=== PATIENT | female | born 1980 | race Two or more races ===

== ENCOUNTER 2017-05-11 13:55 | Emergency (ER) | payer MEDICAID ==
[~2017-05-11] VITALS: Ht 162.6 cm; Wt 90.7 kg
[~2017-05-11 13:55] MED LIST: ALPRAZOLAM0.25 MG ORAL; CIPRO500 MG PO; FIORICET1 EA ORAL; IMITREX100 M1 ORAL; IMITREX50 MG PO; MACROBID100 MG ORAL; NITROFURANTOIN100 M2 ORAL; PROPRANOLOL HCL20 MG PO; TOPIRAMATE25 MG ORAL; ZOFRAN ODT4 MG ORAL
[2017-05-11 14:25] VITALS: BP 107/72
[2017-05-11] MEDS ORDERED: Methocarbamol 750mg tab ORAL ONE (14:30)
[2017-05-11] MEDS ORDERED: Ketorolac 30mg Inj IM ONE (14:30)
[2017-05-11] MEDS ORDERED: IBUPROFEN600 MG ORAL (15:15)
[2017-05-11] MEDS ORDERED: ROBAXIN-750750 MG PO (15:15)
[2017-05-11 15:18] VITALS: BP 107/72
--- NOTE | 2017-05-11 17:51 | Emergency Room Report ---
History of Present Illness General Chief Complaint: Pain Source: Patient Present Illness HPI The patient is a 36-year-old female presenting for right shoulder pain which began one week prior for no known reason. She denies any injury to the area. Pain is an 8/10 dull ache and does not radiate. Worse with arm movement. She has tried [place] balm which does not help. She states pain decreases when arm is at rest. She denies any numbness or tingling. She denies other symptoms including headache, nausea, vomiting, fever, chills, chest pain, shortness of breath Allergies: Coded Allergies: FISH CONTAINING PRODUCTS (Unverified Allergy, Unknown, 04/24/15) Patient History Past Medical History: see triage record Pertinent Family History: none Last Menstrual Period: 04/19/17 Now: No Reviewed Nursing Documentation: PMH: Agreed, PSxH: Agreed Nursing Documentation-PMH Hx Cardiac Problems: No - migrane Hx Hypertension: No Hx Pacemaker: No Hx Asthma: No Hx COPD: No Hx Diabetes: No - "Graves disease dx'd 10/28/15, went on methimazole for six months - Hx Gastrointestinal Problems: No Hx Dialysis: No Hx Neurological Problems: Yes - migraine Hx Cerebrovascular Accident: No Hx Seizures: No Review of Systems All Other Systems: negative except mentioned in HPI Physical Exam Vital Signs Date Time Temp Pulse Resp B/P Pulse Ox O2 Delivery O2 Flow Rate FiO2 05/11/17 14:02 98.2 75 16 107/72 95 Room Air Sp02 EP Interpretation: reviewed, normal Head: normocephalic, atraumatic Eyes: bilateral eye PERRL, bilateral eye normal inspection ENT: hearing grossly normal, normal pharynx, no angioedema, normal voice Respiratory: chest non-tender, lungs clear, normal breath sounds, speaking full sentences Cardiovascular #1: regular rate, rhythm, no edema Musculoskeletal: decreased range of motion, tender - TTP over the R trapezius and anterior deltoid Neurologic: alert, oriented x3, responsive, motor strength/tone normal, sensory intact, speech normal Psychiatric: judgement/insight normal, memory normal, mood/affect normal, no suicidal/homicidal ideation Skin: normal color, no rash, warm/dry, well hydrated Lymphatic: no adenopathy Procedures Splinting Splinting : Consent: Verbal Location: R arm Pre-Made Type: sling Pre-Proc Neuro Vasc Exam: normal Post-Proc Neuro Vasc Exam: normal Patient Tolerated: Well Complications: None Medical Decision Making PA Attestation Dr. Mendez is my supervising physician. Patient management was discussed with my supervising physician Diagnostic Impression: Primary Impression: Muscle strain ER Course The patient is a 36-year-old female presenting with right shoulder pain Ddx considered include but not limited to sprain/strain, fracture, contusion Physical exam: No apparent distress There is tenderness to palpation over the right trapezius and anterior deltoid. Limited active range of motion due to pain. No obvious deformity. Skin is warm and dry. Radial pulse 2+ The patient is given Toradol and Robaxin and states pain has significantly decreased. Active range of motion has increased. Sling is placed over the right arm She'll be discharged home with a prescription for Motrin and Robaxin. She will follow up with primary doctor. ER precautions given Last Vital Signs Date Time Temp Pulse Resp B/P Pulse Ox O2 Delivery O2 Flow Rate FiO2 05/11/17 15:18 98.2 81 16 107/72 95 Room Air Status: improved Disposition: HOME, SELF-CARE Condition: Improved Scripts Methocarbamol* (ROBAXIN-750*) 750 Mg Tablet 750 MG PO TID, #21 TAB 0 Refills Prov: SHIRA WALLIS P.A. 05/11/17 Ibuprofen* (MOTRIN*) 600 Mg Tablet 600 MG ORAL Q8H Y for For Pain, #30 TAB 0 Refills Prov: SHIRA WALLIS P.A. 05/11/17 Patient Instructions: Muscle Strain Additional Instructions: I discussed my findings with the patient. All questions and concerns have been answered. Treatment and medication compliance have been addressed. I advised the patient that they need to follow up with PMD in 3-5 days. Return to ED if pain remains or worsens, numbness or tingling occurs, new rash is noticed, fever is noticed, or if needed for any reason. Patient verbalized understanding of discharge instructions. SHIRA WALLIS May 11, 2017 17:51
== END 2017-05-11 15:18 | disposition home or self-care (01) ==
LOC: EMR 15:07
DX: T14.8 Other injury of unspecified body region (principal); X58.XXXA Exposure to other specified factors, initial encounter; Y93.9 Activity, unspecified; Y92.9 Unspecified place or not applicable; Z91.013 Allergy to seafood
CPT/HCPCS: 96372; 99284; J1885

== ENCOUNTER 2017-10-14 11:55 | Emergency (ER) | payer MEDICAID ==
[~2017-10-14] VITALS: Ht 162.6 cm; Wt 111.1 kg
[~2017-10-14 11:55] MED LIST changes: +IBUPROFEN600 MG ORAL; +ROBAXIN-750750 MG PO
[2017-10-14] MEDS ORDERED: EXCEDRIN MIGRA1 EAC1 PO (12:23)
--- NOTE | 2017-10-14 12:23 | Emergency Room Report ---
History of Present Illness General Chief Complaint: Headache Source: Patient Present Illness HPI 37 yo female presents to ER complaining of right-sided FERNANDEZ. Patient also complaining of pain "behind the eyes". Patient complains of nausea and vomiting yesterday until 1900; states she has been able to tolerate oral liquid since that time. Patient reports a history of migraine FERNANDEZ with similar symptoms being treated with Imitrex; states she took her medication with no relief of symptoms. Patient denies fever, SOB, chest pain, vision changes. Allergies: Coded Allergies: FISH CONTAINING PRODUCTS (Unverified Allergy, Unknown, 04/24/15) Patient History Past Medical History: see triage record Past Surgical History: none Social History: Denies: smoking, alcohol use, drug use Last Menstrual Period: 09/02/2017 Immunizations: UTD Reviewed Nursing Documentation: PMH: Agreed, PSxH: Agreed Nursing Documentation-PMH Past Medical History: No History, Except For Hx Cardiac Problems: No Hx Hypertension: No Hx Pacemaker: No Hx Asthma: No Hx COPD: No Hx Diabetes: No - Graves disease Hx Cancer: No Hx Gastrointestinal Problems: No Hx Dialysis: No History Of Psychiatric Problem: No Hx Neurological Problems: Yes - migraine Hx Cerebrovascular Accident: No Hx Seizures: No Review of Systems All Other Systems: negative except mentioned in HPI Physical Exam Vital Signs Date Time Temp Pulse Resp B/P (MAP) Pulse Ox O2 Delivery O2 Flow Rate FiO2 10/14/17 12:02 98.4 81 14 106/72 96 Room Air Sp02 EP Interpretation: reviewed, normal General Appearance: alert, GCS 15, non-toxic, mild distress Head: normocephalic, atraumatic Eyes: bilateral eye normal inspection, bilateral eye PERRL, bilateral eye EOMI ENT: hearing grossly normal, normal pharynx, normal voice, TMs + canals normal , uvula midline, moist mucus membranes Neck: full range of motion, supple/symm/no masses Respiratory: chest non-tender, lungs clear, normal breath sounds, no respiratory distress, no accessory muscle use, speaking full sentences Cardiovascular #1: regular rate, rhythm, no gallop, no murmur, no rub Cardiovascular #2: 2+ carotid (R), 2+ carotid (L) Musculoskeletal: back normal, gait/station normal, normal range of motion, non- tender, calf tenderness Neurologic: alert, oriented x3, responsive, clinical quality analyst III-XII nml as tested, motor strength/tone normal, sensory intact, normal gait, speech normal Psychiatric: mood/affect normal Skin: normal color, no rash, warm/dry, well hydrated Lymphatic: no adenopathy Medical Decision Making PA Attestation Dr. Salinas is my supervising Physician whom patient management has been discussed with. Diagnostic Impression: Primary Impression: migraine headache ER Course Pt. presents to the ED c/o migraine. Ddx considered but are not limited to migraine FERNANDEZ, tension FERNANDEZ, cluster FERNANDEZ, SAH, TIA. Vital signs: are WNL, pt. is afebrile. ORDERS: none required at this time, the diagnosis is clinical ED INTERVENTIONS: -Excedrin Migraine -Reglan DISCHARGE: -Rx provided for Excedrin migraine -Rx provided for Claritin-D At this time pt is stable for d/c to home. Will provide with patient care instructions and any necessary prescriptions. Patient to take medication as instructed. Patient instructed to continue to current migraine medications at home until further follow-up with PCP. Care plan and follow-up instructions provided. Patient questions asked and answered. Patient instructed to follow-up with primary care provider in the next 3 days and discuss further referral with PCP. ER precautions given. Patient instructed to return to ER immediately for any new or worsening of symptoms including but not limited to fever, neck stiffness , vision changes, and neurological symptoms. Last Vital Signs Date Time Temp Pulse Resp B/P (MAP) Pulse Ox O2 Delivery O2 Flow Rate FiO2 10/14/17 12:02 98.4 81 14 106/72 96 Room Air Status: improved Reevaluation Impression Patient states she is feeling better. Requesting to be discharged, states she is beginning to "feel hungry again". Disposition: HOME, SELF-CARE Condition: Stable Scripts Loratadine/Pseudoephedrine (CLARITIN-D 12 HOUR TABLET) 1 Each Tab.er.12h 1 TAB ORAL EVERY 12 HOURS for 7 Days, #14 TAB Prov: Rosas Valdovinos.A. 10/14/17 Aspirin/Acetaminophen/Caffeine (EXCEDRIN MIGRAINE CAPLET) 1 Each Tablet 1 EACH PO 2XW for 7 Days, #14 TAB Prov: Rosas Valdovinos.A. 10/14/17 Patient Instructions: Migraine Headache Additional Instructions: Patient questions asked and answered. Patient instructed to follow-up with primary care provider in the next 3 days and discuss further referral with PCP. ER precautions given. Patient instructed to return to ER immediately for any new or worsening of symptoms including but not limited to fever, neck stiffness , vision changes, and neurological symptoms. Rosas Valdovinos Oct 14, 2017 12:23
[2017-10-14] MEDS ORDERED: Metoclopramide 10mg/10ml Liq ORAL ONE (12:30)
[2017-10-14] MEDS ORDERED: Excedrin Migraine tab ORAL ONE (12:30)
[2017-10-14] MEDS ORDERED: CLARITIN-D 121 EAC1 ORAL (13:30)
[2017-10-14 13:40] VITALS: BP 131/79
== END 2017-10-14 13:43 | disposition home or self-care (01) ==
LOC: EMR 13:00
DX: G43.909 Migraine, unspecified, not intractable, without status migrainosus (principal); R11.2 Nausea with vomiting, unspecified
CPT/HCPCS: 99283

== ENCOUNTER 2017-12-28 07:00 | Emergency (ER) | payer MEDICAID ==
[~2017-12-28] VITALS: Ht 154.9 cm; Wt 90.7 kg
[~2017-12-28 07:00] MED LIST changes: +CLARITIN-D 121 EAC1 ORAL; +EXCEDRIN MIGRA1 EAC1 PO
[2017-12-28] MEDS: Ketorolac 30mg Inj IM ONE (07:24)
[2017-12-28] MEDS: Metoclopramide 10mg/2ml Inj IM ONE (07:25)
[2017-12-28] MEDS: DiphenhydrAMINE 50mg/ml Inj IM ONE (07:25)
[2017-12-28] MEDS ORDERED: ZOFRAN ODT4 MG ORAL (07:57)
[2017-12-28] MEDS ORDERED: IMITREX50 MG ORAL (07:57)
[2017-12-28 07:59] VITALS: BP 138/83
[2017-12-28 08:00] VITALS: BP 138/83
--- NOTE | 2017-12-28 08:19 | Emergency Room Report ---
History of Present Illness General Chief Complaint: Headache Source: Patient Present Illness HPI 37-year-old female presents ED complaining of headache. Started this morning. History of migraines. Left-sided, throbbing, 10 out of 10, nonradiating. Notes nausea, denies vomiting. Denies photophobia. Denies neck stiffness. Denies fevers or chills. States that she ran out of hers Imitrex. No other aggravating relieving factors. Denies any other associated symptoms Allergies: Coded Allergies: FISH CONTAINING PRODUCTS (Unverified Allergy, Unknown, 04/24/15) Patient History Past Medical History: migraines Past Surgical History: none Pertinent Family History: none Social History: Denies: smoking, alcohol use, drug use Last Menstrual Period: Irregular Now: No - Grave's Disease Immunizations: UTD Reviewed Nursing Documentation: PMH: Agreed; PSxH: Agreed Nursing Documentation-PMH Hx Cardiac Problems: No Hx Hypertension: No Hx Pacemaker: No Hx Asthma: No Hx COPD: No Hx Cancer: No Hx Gastrointestinal Problems: No Hx Dialysis: No Hx Cerebrovascular Accident: No Hx Seizures: No Review of Systems All Other Systems: negative except mentioned in HPI Physical Exam Vital Signs Date Time Temp Pulse Resp B/P (MAP) Pulse Ox O2 Delivery O2 Flow Rate FiO2 12/28/17 07:04 97.8 81 19 140/88 94 Room Air 97.9 Sp02 EP Interpretation: reviewed, normal General Appearance: no apparent distress, alert, GCS 15, non-toxic Head: normocephalic, atraumatic Eyes: bilateral eye normal inspection, bilateral eye PERRL ENT: hearing grossly normal, normal pharynx, no angioedema, normal voice Neck: full range of motion, no meningismus, supple/symm/no masses Respiratory: chest non-tender, lungs clear, normal breath sounds, speaking full sentences Cardiovascular #1: regular rate, rhythm, no edema Cardiovascular #2: 2+ carotid (R), 2+ carotid (L), 2+ radial (R), 2+ radial (L) , 2+ dorsalis pedis (R), 2+ dorsalis pedis (L) Gastrointestinal: normal bowel sounds, non tender, soft, non-distended, no guarding, no rebound Rectal: deferred Genitourinary: normal inspection, no CVA tenderness Musculoskeletal: back normal, gait/station normal, normal range of motion, non- tender Neurologic: alert, oriented x3, responsive, motor strength/tone normal, sensory intact, speech normal Psychiatric: judgement/insight normal, memory normal, mood/affect normal, no suicidal/homicidal ideation Reflexes: 3+ bicep (R), 3+ bicep (L), 3+ tricep (R), 3+ tricep (L), 3+ knee (R) , 3+ knee (L) Skin: normal color, no rash, warm/dry, well hydrated Lymphatic: no adenopathy Medical Decision Making Diagnostic Impression: Primary Impression: migraine headache ER Course Hospital Course 37-year-old female presents to ED complaining of headache. h/o migraine Differential diagnoses include: tension headache, migraine, dehydration, intracranial bleed Clinical course Patient placed on stretcher. After initial history and physical I ordered Reglan, Toradol and Benadryl. Upon reassessment patient states pain has improved. Patient feels better wishes to go home. Given the lack of fever, nuchal rigidity or neurological findings my suspicion for intracranial pathology is low patient be safely discharged to home. i. I feel this is a highly complex case requiring extensive working including EKG/Rhythm strip, Xray/CT/US, Blood/urine lab work, repeat exams while in ED, and administration of strong opiates/narcotics for pain control, admission to hospital or close patient follow up. Diagnosis - migraine headache stable and discharged to home with Rx Imitrex, Zofran. f/up with PMD. return to ED if symptoms recur/worsen. Last Vital Signs Date Time Temp Pulse Resp B/P (MAP) Pulse Ox O2 Delivery O2 Flow Rate FiO2 12/28/17 08:00 97.7 83 17 138/83 97 Room Air 97.9 Status: improved Disposition: HOME, SELF-CARE Condition: Stable Scripts Ondansetron Odt* (ZOFRAN ODT*) 4 Mg Tab.rapdis 4 MG ORAL Q6H PRN for Nausea & Vomiting, #30 TAB 0 Refills Prov: Juan Antonio Jiang MD 12/28/17 Sumatriptan Succinate* (IMITREX*) 50 Mg Tablet 50 MG ORAL DAILY PRN MIGRAINE, #30 TAB Prov: Juan Antonio Jiang MD 12/28/17 Referrals: [facility],REFERRING (PCP) Patient Instructions: Migraine Headache Juan Antonio Jiang MD Dec 28, 2017 08:19
== END 2017-12-28 08:00 | disposition home or self-care (01) ==
LOC: EMR 07:40
DX: G43.909 Migraine, unspecified, not intractable, without status migrainosus (principal)
CPT/HCPCS: 96372; 99284; J1200; J1885; J2765

== ENCOUNTER 2019-01-27 20:29 | Emergency (ER) | payer MEDICAID ==
[~2019-01-27] VITALS: Ht 162.6 cm; Wt 113.4 kg
[~2019-01-27 20:29] MED LIST changes: +IMITREX50 MG ORAL
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
[2019-01-27 20:50] VITALS: BP 128/80
--- NOTE | 2019-01-27 21:08 | Diagnostic Imaging Report ---
EXAM: XR Right Wrist Complete, 3 Views CLINICAL HISTORY: TRAUMA TECHNIQUE: Frontal, lateral and oblique views of the right wrist. COMPARISON: No relevant prior studies available. FINDINGS: Bones/joints: Unremarkable. No acute fracture. No dislocation. Soft tissues: Unremarkable. No radiopaque foreign body. IMPRESSION: No definite plain film evidence for acute fracture or dislocation. If there is continued clinical concern for fracture, consider CT or MRI for further evaluation.
[2019-01-27] MEDS ORDERED: IBUPROFEN600 MG ORAL (21:34)
--- NOTE | 2019-01-27 21:37 | NUR ---
ED Nurse Note: pt cleared to be d/c per ERMD, pt discharge and aftercare instruction provided w/ prescription sent electronically, pt advised to follow up with pcp/orthospecialist or return to ed if changes in condition, pt verbalized understanding and agrees with plan, education done via discussion and handout, vss, wrist brace applied, pt left w/ all belongings.
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
== END 2019-01-27 21:30 | disposition home or self-care (01) ==
LOC: EMR 21:19
DX: S62.001A Unspecified fracture of navicular [scaphoid] bone of right wrist, initial encounter for closed fracture (principal); V19.88XA Pedal cyclist (driver) (passenger) injured in other specified transport accidents, initial encounter; Y92.9 Unspecified place or not applicable; Z91.013 Allergy to seafood
CPT/HCPCS: 99283

== ENCOUNTER 2019-09-16 16:39 | Emergency (ER) | payer MEDICAID ==
[~2019-09-16] VITALS: Ht 162.6 cm; Wt 113.4 kg
[2019-09-16 17:10] VITALS: BP 105/68
--- NOTE | 2019-09-16 17:20 | NUR ---
ED Nurse Note: PT CAME IN DUE TO LOWER BACK PAIN THAT RADIATES TO HER PUBIC AREA X 1 WEEK. DENIES DYSURIA. NO FEVER OR CHILLS. AAO X4 AND AMBULATORY.
[2019-09-16 17:49] LABS: APPEARANCE,URINE CLEAR; BILIRUBIN, URINE NEGATIVE (NEGATIVE); GLUCOSE, URINE (UA) NEGATIVE (NEGATIVE); KETONES,URINE NEGATIVE (NEGATIVE); LEUKOCYTE ESTERASE ,URINE NEGATIVE (NEGATIVE); NITRITE,URINE NEGATIVE (NEGATIVE); PH,URINE 6 (4.5-8.0); PROTEIN,URINE NEGATIVE (NEGATIVE); UROBILINOGEN,URINE NORMAL MG/DL (0.0-1.0)
[2019-09-16 17:52] LABS: COLOR,URINE YELLOW
--- NOTE | 2019-09-16 18:06 | Emergency Room Report ---
History of Present Illness General Chief Complaint: Back Pain-No Injury Source: Patient Present Illness HPI * 39 YO Female presents to the ED c/o progressive right flank pain intermittent and severe in nature. Patient denies hematuria, urinary frequency, urgency or dysuria. Patient denies fevers or chills she denies appreciable trauma or fall or strenuous activity/lifting of heavy objects. Patient reports pain is exacerbated upon the slightest movement of the torso. She states the pain radiates but has not migrated. She denies constipation, diarrhea or nausea/vomiting Denies CP, Palpitations, LOC, AMS, dizziness, Changes in Vision, Sensation, paresthesias, or a sudden severe headache. Allergies: Coded Allergies: FISH CONTAINING PRODUCTS (Unverified Allergy, Unknown, 04/24/15) Patient History Past Medical History: see triage record, other - graves disease Past Surgical History: none Pertinent Family History: none Last Menstrual Period: on period Now: No Reviewed Nursing Documentation: PMH: Agreed; PSxH: Agreed Nursing Documentation-PMH Past Medical History: No History, Except For Hx Cardiac Problems: No - Grave's disease Hx Hypertension: No Hx Pacemaker: No Hx Asthma: No Hx COPD: No Hx Diabetes: No Hx Cancer: No Hx Gastrointestinal Problems: No Hx Dialysis: No History Of Psychiatric Problem: No Hx Neurological Problems: No Hx Cerebrovascular Accident: No Hx Seizures: No Review of Systems All Other Systems: negative except mentioned in HPI Physical Exam Vital Signs Date Time Temp Pulse Resp B/P (MAP) Pulse Ox O2 Delivery O2 Flow Rate FiO2 09/16/19 17:10 98.1 94 16 105/68 96 Room Air Sp02 EP Interpretation: reviewed, normal General Appearance: no apparent distress, alert, GCS 15, non-toxic Head: normocephalic, atraumatic Eyes: bilateral eye normal inspection, bilateral eye PERRL ENT: hearing grossly normal, normal voice Neck: full range of motion Respiratory: chest non-tender, lungs clear, normal breath sounds, speaking full sentences Cardiovascular #1: regular rate, rhythm Gastrointestinal: normal bowel sounds, non tender - NO appreciable RUQ or RLQ abdominal TTP on exam. , soft Rectal: deferred Genitourinary: normal inspection, CVA tenderness (R) Musculoskeletal: normal range of motion, gait/station normal, tender - RIght flank area, superficial TTP, pain with movements. Neurologic: alert, motor strength/tone normal, oriented x3, sensory intact, responsive, speech normal Psychiatric: judgement/insight normal Skin: no rash Lymphatic: no adenopathy Medical Decision Making PA Attestation Dr. Mendez is my supervising Physician whom patient management has been discussed with. Diagnostic Impression: Primary Impression: Back pain Qualified Codes: M54.5 - Low back pain Additional Impression: Acute flank pain ER Course Pt. presents to the ED c/o progressive right flank pain intermittent and severe in nature. Ddx considered but are not limited to Diverticulitis, acute appy, diarrhea,UC, PUD, GE, pancreatitis, gallstone, kidney stone, pyelonephritis, UTI, obstruction. Vital signs: are WNL, pt. is afebrile H&PE are most consistent with [ ] ORDERS: -CBC, CMP, lipase, - UA -Urine Hcg: Negative - Renal US: ED INTERVENTIONS: -- DISCHARGE: At this time pt. is stable for d/c to home. Will provide printed patient care instructions, and any necessary prescriptions. Care plan and follow up instructions have been discussed with the patient prior to discharge. Labs Test 09/16/19 17:14 Urine Color Yellow Urine Appearance Clear Urine pH 6 (4.5-8.0) Urine Specific [place] 1.020 (1.005-1.035) Urine Protein Negative (NEGATIVE) Urine Glucose (UA) Negative (NEGATIVE) Urine Ketones Negative (NEGATIVE) Urine Blood 2+ (NEGATIVE) Urine Nitrite Negative (NEGATIVE) Urine Bilirubin Negative (NEGATIVE) Urine Urobilinogen Normal MG/DL (0.0-1.0) Urine Leukocyte Esterase Negative (NEGATIVE) Urine RBC 2-4 /HPF (0 - 2) Urine WBC 0-2 /HPF (0 - 2) Urine Squamous Epithelial Cells Occasional /LPF Urine Transitional Epithelial Cells Few /LPF (NONE) Urine Bacteria Few /HPF (NONE) Urine HCG, Qualitative Negative (NEGATIVE) CT/MRI/US Diagnostic Results CT/MRI/US Diagnostic Results : Imaging Test Ordered: Renal ultrasound Impression " Right kidney: No stones, no solid mass. No hydronephrosis. Left kidney shows no stones, no solid mass, dilated left ureter, bladder is unremarkable." Per official radiology report- Please see report for specific details. Last Vital Signs Date Time Temp Pulse Resp B/P (MAP) Pulse Ox O2 Delivery O2 Flow Rate FiO2 09/16/19 17:10 98.1 94 16 105/68 (80) 96 Room Air Disposition: HOME, SELF-CARE Condition: Stable Scripts Ibuprofen* (MOTRIN*) 600 Mg Tablet 600 MG ORAL THREE TIMES A DAY, #30 TAB 0 Refills Prov: Nikole Gordon 09/16/19 Methocarbamol* (ROBAXIN-750*) 750 Mg Tablet 750 MG PO QID, #28 TAB 0 Refills Prov: Nikole Gordon 09/16/19 Patient Instructions: Back Pain, Adult, Biliary Colic Additional Instructions: Take medications as directed. Follow up with a Primary Care Provider in 3-5 days, even if your symptoms have resolved. --Please review list of primary care clinics, if you do not already have a primary care provider Return sooner to ED if new symptoms occur, or current symptoms become worse. Do not drink alcohol, drive, or operate heavy machinery while taking Robaxin ( Muscle Relaxers) as this may cause drowsiness. - Please note that this Emergency Department Report was dictated using [employer] instructor technology software, occasionally this can lead to erroneous entry secondary to interpretation by the dictation equipment. Nikole Gordon Sep 16, 2019 18:06
--- NOTE | 2019-09-16 19:44 | Diagnostic Imaging Report ---
EXAM: US Retroperitoneal Limited, Renal CLINICAL HISTORY: PAIN TECHNIQUE: Real-time limited ultrasound of the retroperitoneum with image documentation. COMPARISON: No relevant prior studies available. FINDINGS: Right kidney: No stones. No solid mass. No hydronephrosis. Left kidney: No stones. No solid mass. Dilated left ureter. Bladder: Unremarkable. IMPRESSION: Dilated left ureter. No stones are identified.
[2019-09-16] MEDS ORDERED: Methocarbamol 750mg tab ORAL ONE (19:45)
[2019-09-16] MEDS ORDERED: IBUPROFEN600 MG ORAL (19:46)
[2019-09-16] MEDS ORDERED: ROBAXIN-750750 MG PO (19:46)
[2019-09-16 19:52] VITALS: BP 115/76
--- NOTE | 2019-09-16 19:52 | NUR ---
ER DISCHARGE NOTE: Patient is cleared to be discharged per PA, pt is aox4, on room air, with stable vital signs. pt was given dc and prescription instructions, pt was able to verbalize understanding, pt id band removed. pt is able to ambulate with steady gait. pt took all belongings and left with her family member.
== END 2019-09-16 19:52 | disposition home or self-care (01) ==
LOC: EMR 17:50
DX: M54.5 Low back pain (principal); R10.9 Unspecified abdominal pain; Z91.013 Allergy to seafood
CPT/HCPCS: 76770; 81003; 81025; Z7502; 99284

== ENCOUNTER 2019-11-08 10:04 | Emergency (ER) | payer MEDICAID ==
[~2019-11-08] VITALS: Ht 162.6 cm; Wt 113.4 kg
[2019-11-08 10:08] VITALS: BP 114/78
--- NOTE | 2019-11-08 10:14 | NUR ---
ED Nurse Note: Pt walked in from home c/o right heel pain after moving furniture on wednesday. Pt denies injury/trauma. Respirations even and unlabored on room air. Vitals stable as documented.
[2019-11-08] MEDS ORDERED: NAPROXEN250 MG ORAL (10:22)
--- NOTE | 2019-11-08 10:22 | Emergency Room Report ---
History of Present Illness General Chief Complaint: Lower Extremity Injury Source: Patient Present Illness HPI 39-year-old female presents with right foot pain after moving furniture no trauma to the right foot, she endorses pain this a.m. when she stood up she felt the pain in her heel and midfoot, sharp pain aggravated with movement alleviated the rest severity is moderate, intermittent. Allergies: Coded Allergies: FISH CONTAINING PRODUCTS (Unverified Allergy, Unknown, 04/24/15) Patient History Past Medical History: see triage record Now: No Reviewed Nursing Documentation: PMH: Agreed; PSxH: Agreed Nursing Documentation-PMH Past Medical History: No History, Except For Hx Cardiac Problems: No - Grave's disease Hx Hypertension: No Hx Pacemaker: No Hx Asthma: No Hx COPD: No Hx Diabetes: No Hx Cancer: No Hx Gastrointestinal Problems: No Hx Dialysis: No Hx Neurological Problems: No Hx Cerebrovascular Accident: No Hx Seizures: No Review of Systems All Other Systems: negative except mentioned in HPI Physical Exam Vital Signs Date Time Temp Pulse Resp B/P (MAP) Pulse Ox O2 Delivery O2 Flow Rate FiO2 11/08/19 10:08 98.1 97 18 114/78 (90) 98 General Appearance: well appearing, no apparent distress Head: normocephalic, atraumatic ENT: hearing grossly normal, normal voice Neck: full range of motion, supple Respiratory: no respiratory distress, speaking full sentences Musculoskeletal: other - Right right lower extremity: 2+ PT DP fires EHL 5-5 plantar dorsiflexion of the foot, tenderness to palpation along the mid sole of the foot and the tendon Neurologic: alert, normal gait Psychiatric: mood/affect normal Skin: no rash Medical Decision Making Diagnostic Impression: Primary Impression: Plantar fasciitis, right ER Course 39-year-old female denies any trauma but cannot remember, differential diagnosis includes fracture, bursitis, plantars fasciitis Counseled patient that she may have plantar fasciitis, will obtain x-ray to rule out fracture Patient deferred testing as she is currently on her. Understands the risks and benefits X-ray negative Supportive care disposition home with return precautions Other X-Ray Diagnostic Results Other X-Ray Diagnostic Results : X-Ray ordered: Right foot # of Views/Limited Vs Complete: 3 View Indication: Pain EP Interpretation: Yes Interpretation: no dislocation, no soft tissue swelling, no fractures Impression: No acute disease Electronically Signed by: Carrington Herzog MD Last Vital Signs Date Time Temp Pulse Resp B/P (MAP) Pulse Ox O2 Delivery O2 Flow Rate FiO2 11/08/19 10:08 98.1 97 18 114/78 (90) 98 Disposition: HOME, SELF-CARE Condition: Stable Referrals: [facility] Patient Instructions: Plantar Fasciitis, Plantar Fasciitis With Rehab-SportsMed Additional Instructions: The patient was provided with discharge instructions, notified to follow-up with a primary care doctor and or specialist in the next 24-48 hours, and to return to the ED if they have worsening of their symptoms. Please note that this report is being documented using [employer] technology. This can lead to erroneous entry secondary to incorrect interpretation by the dictating instrument. Carrington Herzog MD Nov 08, 2019 10:22
[2019-11-08] MEDS ORDERED: Acetaminophen 500mg (ES) tab ORAL ONE (10:30)
--- NOTE | 2019-11-08 10:39 | NUR ---
ED Nurse Note: xray taken
--- NOTE | 2019-11-08 10:46 | NUR ---
ER DISCHARGE NOTE: Patient is cleared to be discharged per ERMD, pt is aox4, on room air, with stable vital signs as documented. pt was given dc and prescription instructions and was able to verbalize understanding. pt id band removed. pt is able to ambulate with steady gait. pt took all belongings.
--- NOTE | 2019-11-08 10:53 | Diagnostic Imaging Report ---
. Indication: Right foot pain Technique: 3 views right foot Comparison: none Findings: There is hallux valgus and bunion formation. No acute fractures. No dislocations. The joint spaces are preserved. There is a small plantar spur Impression: No acute process
== END 2019-11-08 10:48 | disposition home or self-care (01) ==
LOC: EMR 10:40
DX: M72.2 Plantar fascial fibromatosis (principal); E05.00 Thyrotoxicosis with diffuse goiter without thyrotoxic crisis or storm; Z91.013 Allergy to seafood
CPT/HCPCS: 73630; Z7502; 99283

== ENCOUNTER 2020-01-06 10:04 | Emergency (ER) | payer MEDICAID, OTHER ==
[~2020-01-06] VITALS: Ht 162.6 cm; Wt 113.4 kg
[~2020-01-06 10:04] MED LIST changes: +NAPROXEN250 MG ORAL
--- NOTE | 2020-01-06 10:15 | NUR ---
ED Nurse Note: Patient walked into ED from home c/o / aching/sharp lower left quadarant abdominal pain x 3 days. Patient denies nausea, vomiting, and diarrhea. Patient does have slight facial grimacing and some guarding of the abdomen. Denies recent fall or injury or any change in routine or diet. Patient AxO x 4, patient on the prevention coordinator. Bed in lowest position. Blood drawn and sent along with urine specimen to lab.
[2020-01-06] MEDS ORDERED: Morphine Sulfate 4mg/ml Inj (IV USE ONLY) IVP ONE (10:30)
[2020-01-06] MEDS ORDERED: Omnipaque-300 100ml vial INJ PRN (10:30)
--- NOTE | 2020-01-06 10:38 | Emergency Room Report ---
History of Present Illness General Chief Complaint: Abdominal Pain Source: Patient Present Illness HPI 39-year-old female presents ED for evaluation of abdominal pain. States pain started 3 days ago. Getting progressively worse. Left-sided, dull, 9 out of 10 , nonradiating. Denies nausea or vomiting. Denies diarrhea. Denies fevers or chills. Denies sick contacts or recent travel. Denies runny nose cough or congestion. Other aggravating relieving factors. Denies any other associated symptoms Allergies: Coded Allergies: FISH CONTAINING PRODUCTS (Unverified Allergy, Unknown, 04/24/15) COVID-19 Screening Contact w/high risk pt: No Recent Travel to affected area: No Experienced COVID-19 symptoms?: No Patient History Past Medical History: none Past Surgical History: none Pertinent Family History: none Social History: Denies: smoking, alcohol use, drug use Last Menstrual Period: a week ago Now: No Immunizations: UTD Reviewed Nursing Documentation: PMH: Agreed; PSxH: Agreed Nursing Documentation-PMH Hx Cardiac Problems: No - Grave's disease(2016), migraine Hx Hypertension: No Hx Pacemaker: No Hx Asthma: No Hx COPD: No Hx Diabetes: No Hx Cancer: No Hx Gastrointestinal Problems: No Hx Dialysis: No Hx Neurological Problems: No Hx Cerebrovascular Accident: No Hx Seizures: No Review of Systems All Other Systems: negative except mentioned in HPI Physical Exam Vital Signs Date Time Temp Pulse Resp B/P (MAP) Pulse Ox O2 Delivery O2 Flow Rate FiO2 01/06/20 10:10 98.6 85 18 121/80 (94) 96 Room Air Sp02 EP Interpretation: reviewed, normal General Appearance: alert, GCS 15, non-toxic, obese Head: normocephalic, atraumatic Eyes: bilateral eye normal inspection, bilateral eye PERRL ENT: hearing grossly normal, normal pharynx, no angioedema, normal voice Neck: full range of motion, supple/symm/no masses Respiratory: chest non-tender, lungs clear, normal breath sounds, speaking full sentences Cardiovascular #1: regular rate, rhythm, no edema Cardiovascular #2: 2+ carotid (R), 2+ carotid (L), 2+ radial (R), 2+ radial (L) , 2+ dorsalis pedis (R), 2+ dorsalis pedis (L) Gastrointestinal: normal bowel sounds, soft, non-distended, no guarding, no rebound, tenderness - L sided Rectal: deferred Genitourinary: normal inspection, no CVA tenderness Musculoskeletal: back normal, normal range of motion, gait/station normal, non- tender Neurologic: alert, motor strength/tone normal, oriented x3, sensory intact, responsive, speech normal Psychiatric: judgement/insight normal, memory normal, mood/affect normal, no suicidal/homicidal ideation Reflexes: 3+ bicep (R), 3+ bicep (L), 3+ tricep (R), 3+ tricep (L), 3+ knee (R) , 3+ knee (L) Skin: no rash Lymphatic: no adenopathy Medical Decision Making Diagnostic Impression: Primary Impression: Epiploic appendagitis ER Course Hospital Course 39-year-old F presents to ED with abdominal pain Differential diagnosis includes-appendicitis, cholecystitis, small bowel obstruction, gastritis, Clinical course Patient placed on stretcher. After initial history and physical I ordered labs , IV fluids, pain medications and CT scan Labs - no leukocytosis, electrolytes ok, LFTs normal, UA unremarkable CT scan shows inflammation in mesentary consistent with epiploic appendagitis Discussed with surgery. Agreed that patient can be discharged to home. I discussed findings with patient. Will discharge home with pain meds and antibiotics. I will give copy of CT report. States she has a PMD. Safe for discharge for close outpatient follow-up I feel this is a highly complex case requiring extensive working including EKG/ Rhythm strip, Xray/CT/US, Blood/urine lab work, repeat exams while in ED, and administration of strong opiates/narcotics for pain control, admission to hospital or close patient follow up. Diagnosis - epipoloic appendagitis stable and discharged to home with Rx Cipro, [place]. followup with PMD. return to ED if symptoms recur/worsen Labs Test 01/06/20 10:20 White Blood Count 9.4 K/UL (4.8-10.8) Red Blood Count 4.64 M/UL (4.20-5.40) Hemoglobin 13.4 G/DL (12.0-16.0) Hematocrit 38.4 % (37.0-47.0) Mean Corpuscular Volume 83 FL (80-99) Mean Corpuscular Hemoglobin 28.8 PG (27.0-31.0) Mean Corpuscular Hemoglobin Concent 34.8 G/DL (32.0-36.0) Red Cell Distribution Width 11.1 % (11.6-14.8) Platelet Count 350 K/UL (150-450) Mean Platelet Volume 5.8 FL (6.5-10.1) Neutrophils (%) (Auto) 62.0 % (45.0-75.0) Lymphocytes (%) (Auto) 29.2 % (20.0-45.0) Monocytes (%) (Auto) 5.8 % (1.0-10.0) Eosinophils (%) (Auto) 2.0 % (0.0-3.0) Basophils (%) (Auto) 1.0 % (0.0-2.0) Urine Color Pale yellow Urine Appearance Clear Urine pH 6 (4.5-8.0) Urine Specific [place] 1.015 (1.005-1.035) Urine Protein Negative (NEGATIVE) Urine Glucose (UA) Negative (NEGATIVE) Urine Ketones Negative (NEGATIVE) Urine Blood 1+ (NEGATIVE) Urine Nitrite Negative (NEGATIVE) Urine Bilirubin Negative (NEGATIVE) Urine Urobilinogen Normal MG/DL (0.0-1.0) Urine Leukocyte Esterase Negative (NEGATIVE) Urine RBC 0-2 /HPF (0 - 2) Urine WBC 0 /HPF (0 - 2) Urine Squamous Epithelial Cells Moderate /LPF (NONE/OCC) Urine Bacteria Occasional /HPF (NONE) Urine HCG, Qualitative Negative (NEGATIVE) Sodium Level 140 MMOL/L (136-145) Potassium Level 3.8 MMOL/L (3.5-5.1) Chloride Level 105 MMOL/L (98-107) Carbon Dioxide Level 26 MMOL/L (21-32) Anion Gap 10 mmol/L (5-15) Blood Urea Nitrogen 10 mg/dL (7-18) Creatinine 0.6 MG/DL (0.55-1.30) Estimat Glomerular Filtration Rate > 60 mL/min (>60) Glucose Level 87 MG/DL (74-106) Calcium Level 8.7 MG/DL (8.5-10.1) Total Bilirubin 0.3 MG/DL (0.2-1.0) Aspartate Amino Transf (AST/SGOT) 21 U/L (15-37) Alanine Aminotransferase (ALT/SGPT) 37 U/L (12-78) Alkaline Phosphatase 127 U/L (46-116) Total Protein 7.8 G/DL (6.4-8.2) Albumin 3.6 G/DL (3.4-5.0) Globulin 4.2 g/dL Albumin/Globulin Ratio 0.9 (1.0-2.7) Lipase 93 U/L (73-393) CT/MRI/US Diagnostic Results CT/MRI/US Diagnostic Results : Imaging Test Ordered: CT A/P Impression COMPARISON: Retroperitoneal ultrasound 09/16/19 FINDINGS: Lung bases: Unremarkable. No mass. No consolidation. ABDOMEN: Liver: Unremarkable. No mass. Gallbladder and bile ducts: Unremarkable. No calcified stones. No ductal dilation. Pancreas: Unremarkable. No mass. No ductal dilation. Spleen: Unremarkable. No splenomegaly. Adrenals: Unremarkable. No mass. Kidneys and ureters: Tiny 4 mm lesion the left kidney, too small to characterize. No hydronephrosis. Stomach and bowel: Unremarkable. No obstruction. No mucosal thickening. PELVIS: Appendix: Normal appendix. Bladder: Unremarkable. No mass. Reproductive: 1.4 cm follicle the right ovary. Trace free fluid in the pelvis likely physiologic. ABDOMEN and PELVIS: Intraperitoneal space: Left mid anterolateral abdominal mesenteric round area of inflammation with central fatty density measuring 1.7 x 2.5 cm consistent with epiploic appendagitis. Mild thickening of the paracolic gutter. No free air. Bones/joints: No acute fracture. No dislocation. Soft tissues: Unremarkable. Vasculature: Unremarkable. No abdominal aortic aneurysm. Lymph nodes: Small to borderline prominent right lower abdominal mesenteric lymph nodes. IMPRESSION: Left mid anterolateral abdominal mesenteric round area of inflammation with central fatty density measuring 1.7 x 2.5 cm consistent with epiploic appendagitis. Mild thickening of the paracolic gutter. No free air, free fluid, or abscess. Last Vital Signs Date Time Temp Pulse Resp B/P (MAP) Pulse Ox O2 Delivery O2 Flow Rate FiO2 01/06/20 10:10 98.6 85 18 121/80 (94) 96 Room Air Status: improved Disposition: ADMITTED INPATIENT Condition: Serious Scripts Ciprofloxacin Hcl* (CIPROFLOXACIN HCL*) 500 Mg Tablet 500 MG ORAL Q12H, #14 TAB 0 Refills Prov: Juan Antonio Jiang MD 01/06/20 Hydrocodone Bit/Acetaminophen 5-325* (NORCO 5-325 TABLET*) 1 Each Tablet 1 TAB ORAL Q6H PRN for FOR PAIN, #10 TAB 0 Refills Prov: Juan Antonio Jiang MD 01/06/20 Juan Antonio Jiang MD Jan 06, 2020 10:37
[2020-01-06 11:05] LABS: HEMATOCRIT 38.4 % (37.0-47.0); HEMOGLOBIN 13.4 G/DL (12.0-16.0); LYMPHOCYTES % (AUTO) 29.2 % (20.0-45.0); MEAN CORPUSCULAR VOLUME 83 FL (80-99); MONOCYTES % (AUTO) 5.8 % (1.0-10.0); PLATELET COUNT 350 K/UL (150-450); RED BLOOD COUNT 4.64 M/UL (4.20-5.40); RED CELL DISTRIBUTION WIDTH 11.1 % (11.6-14.8); WHITE BLOOD COUNT 9.4 K/UL (4.8-10.8)
[2020-01-06 11:12] LABS: ANION GAP 10 mmol/L (5-15); APPEARANCE,URINE CLEAR; BILIRUBIN, URINE NEGATIVE (NEGATIVE); BLOOD UREA NITROGEN 10 mg/dL (7-18); CALCIUM 8.7 MG/DL (8.5-10.1); CARBON DIOXIDE 26 MMOL/L (21-32); CHLORIDE 105 MMOL/L (98-107); COLOR,URINE PALE YELLOW; CREATININE 0.6 MG/DL (0.55-1.30); GLUCOSE, URINE (UA) NEGATIVE (NEGATIVE); KETONES,URINE NEGATIVE (NEGATIVE); LEUKOCYTE ESTERASE ,URINE NEGATIVE (NEGATIVE); NITRITE,URINE NEGATIVE (NEGATIVE); PH,URINE 6 (4.5-8.0); POTASSIUM 3.8 MMOL/L (3.5-5.1); PROTEIN,URINE NEGATIVE (NEGATIVE); SODIUM 140 MMOL/L (136-145); UROBILINOGEN,URINE NORMAL MG/DL (0.0-1.0)
[2020-01-06 11:16] LABS: ALANINE AMINOTRANSFERASE 37 U/L (12-78); ALBUMIN 3.6 G/DL (3.4-5.0); ALBUMIN/GLOBULIN RATIO 0.9 (1.0-2.7); ALKALINE PHOSPHATASE 127 U/L (46-116); ASPARTATE AMINO TRANSFERASE 21 U/L (15-37); BILIRUBIN,TOTAL 0.3 MG/DL (0.2-1.0)
--- NOTE | 2020-01-06 11:30 | NUR ---
ED Nurse Note: Patient taken to CT
[2020-01-06 11:43] VITALS: BP 121/80
--- NOTE | 2020-01-06 11:45 | NUR ---
ED Nurse Note: Patient returned from CT
--- NOTE | 2020-01-06 12:20 | Diagnostic Imaging Report ---
EXAM: CT Abdomen and Pelvis With Intravenous Contrast CLINICAL HISTORY: ABD PAIN TECHNIQUE: Axial computed tomography images of the abdomen and pelvis with intravenous contrast. CTDI is 15.3 mGy and DLP is 878.5 mGy-cm. One or more of the following dose reduction techniques were used: automated exposure control, adjustment of the mA and/or kV according to patient size, use of iterative reconstruction technique. COMPARISON: Retroperitoneal ultrasound 09/16/19 FINDINGS: Lung bases: Unremarkable. No mass. No consolidation. ABDOMEN: Liver: Unremarkable. No mass. Gallbladder and bile ducts: Unremarkable. No calcified stones. No ductal dilation. Pancreas: Unremarkable. No mass. No ductal dilation. Spleen: Unremarkable. No splenomegaly. Adrenals: Unremarkable. No mass. Kidneys and ureters: Tiny 4 mm lesion the left kidney, too small to characterize. No hydronephrosis. Stomach and bowel: Unremarkable. No obstruction. No mucosal thickening. PELVIS: Appendix: Normal appendix. Bladder: Unremarkable. No mass. Reproductive: 1.4 cm follicle the right ovary. Trace free fluid in the pelvis likely physiologic. ABDOMEN and PELVIS: Intraperitoneal space: Left mid anterolateral abdominal mesenteric round area of inflammation with central fatty density measuring 1.7 x 2.5 cm consistent with epiploic appendagitis. Mild thickening of the paracolic gutter. No free air. Bones/joints: No acute fracture. No dislocation. Soft tissues: Unremarkable. Vasculature: Unremarkable. No abdominal aortic aneurysm. Lymph nodes: Small to borderline prominent right lower abdominal mesenteric lymph nodes. IMPRESSION: Left mid anterolateral abdominal mesenteric round area of inflammation with central fatty density measuring 1.7 x 2.5 cm consistent with epiploic appendagitis. Mild thickening of the paracolic gutter. No free air, free fluid, or abscess.
[2020-01-06] MEDS ORDERED: CIPROFLOXACIN500 M2 ORAL (12:42)
[2020-01-06] MEDS ORDERED: NORCO 5-325 TA1 EAC1 ORAL (12:42)
[2020-01-06 12:50] VITALS: BP 121/80
--- NOTE | 2020-01-06 12:50 | NUR ---
ER DISCHARGE NOTE: Patient is cleared to be discharged per ERMD, pt is aox4, on room air, with stable vital signs. pt was given dc and prescription instructions, pt was able to verbalize understanding, pt id band and iv site removed. pt is able to ambulate with steady gait. pt took all belongings.
== END 2020-01-06 12:50 | disposition home or self-care (01) ==
LOC: EMR 10:40
DX: K63.89 Other specified diseases of intestine (principal); E66.9 Obesity, unspecified; Z91.013 Allergy to seafood
CPT/HCPCS: 36415; 74177; 80053; 81003; 81025; 83690; 85025; 96374; J2270; J7040; Q9967; Z7502; 99284

== ENCOUNTER 2020-06-11 13:28 | Emergency (ER) | payer MEDICAID ==
[~2020-06-11] VITALS: Ht 162.6 cm; Wt 108.9 kg
[~2020-06-11 13:28] MED LIST changes: +CIPROFLOXACIN500 M2 ORAL; +NORCO 5-325 TA1 EAC1 ORAL
--- NOTE | 2020-06-11 13:48 | NUR ---
ED Nurse Note: Pt las abscess lower L abdomen pain 01/04. Pt states that it popped yesterday. Pt does not know where abscess came from, but is concerned it might be bug bite. She also says that her neck lymphs feel swollen now.
[2020-06-11 13:50] VITALS: BP 117/72
[2020-06-11 15:16] LABS: ANION GAP 12 mmol/L (5-15); BLOOD UREA NITROGEN 12 mg/dL (7-18); CALCIUM 8.6 MG/DL (8.5-10.1); CARBON DIOXIDE 23 MMOL/L (21-32); CHLORIDE 105 MMOL/L (98-107); CREATININE 0.7 MG/DL (0.55-1.30); POTASSIUM 4.2 MMOL/L (3.5-5.1); SODIUM 140 MMOL/L (136-145)
[2020-06-11] MEDS ORDERED: Omnipaque-300 100ml vial INJ ONE (15:30)
--- NOTE | 2020-06-11 15:31 | NUR ---
ED Nurse Note: Pt taken to CT.
[2020-06-11 15:41] LABS: BASOPHILS % (AUTO) 0.7 % (0.0-2.0); HEMATOCRIT 35.5 % (37.0-47.0); LYMPHOCYTES % (AUTO) 24.4 % (20.0-45.0); MEAN CORPUSCULAR VOLUME 82 FL (80-99); MONOCYTES % (AUTO) 5.1 % (1.0-10.0); NEUTROPHILS % (AUTO) 67.8 % (45.0-75.0); PLATELET COUNT 348 K/UL (150-450); RED BLOOD COUNT 4.32 M/UL (4.20-5.40); WHITE BLOOD COUNT 13.2 K/UL (4.8-10.8)
--- NOTE | 2020-06-11 16:12 | Emergency Room Report ---
History of Present Illness General Chief Complaint: Skin Rash/Abscess Source: Patient (Nikole Gordon) Present Illness HPI 40-year-old female presents to the emergency department complaining of abscess on the lower abdomen which drained 4 days ago. Patient reports that she has had symptoms there x4 weeks that have not healed. Patient has past medical history of migraines and was recently seen and diagnosed with epiploic appendagitis. Patient denies fevers or chills she denies pain at this time she reports moderate amount of dark red blood came from the lesion. Patient does admit to some self manipulation to the area. She denies purulent discharge. She reports initially she had swelling and surrounding erythema. Patient reports she has been applying topical antibiotics and doing wound care at home herself. She is UTD with vaccinations. She denies itching. She denies lesions elsewhere on the body. She denies recent injections at or near the affected area. No other aggravating or relieving factors at this time. Pt. reports that the lesion began as a small red bump that she thought was an insect bite 4 weeks ago. (Nikole Gordon) Allergies: Coded Allergies: FISH CONTAINING PRODUCTS (Unverified Allergy, Unknown, 04/24/15) COVID-19 Screening Contact w/high risk pt: No Recent Travel to affected area: No Experienced COVID-19 symptoms?: No COVID-19 Testing performed DELIVERY DRIVER ASSISTANT: No (Nikole Gordon) Patient History Past Medical History: see triage record Past Surgical History: none Pertinent Family History: none Now: No Reviewed Nursing Documentation: PMH: Agreed; PSxH: Agreed (Nikole Gordon) Nursing Documentation-PMH Past Medical History: No History, Except For Hx Hypertension: No Hx Pacemaker: No Hx Asthma: No Hx COPD: No Hx Diabetes: No Hx Cancer: No Hx Gastrointestinal Problems: No Hx Dialysis: No Hx Neurological Problems: No Hx Cerebrovascular Accident: No Hx Seizures: No (Nikole Gordon) Review of Systems All Other Systems: negative except mentioned in HPI (Nikole Gordon) Physical Exam Vital Signs Date Time Temp Pulse Resp B/P (MAP) Pulse Ox O2 Delivery O2 Flow Rate FiO2 06/11/20 13:38 97.7 92 20 120/73 (89) 100 Room Air Sp02 EP Interpretation: reviewed, normal General Appearance: no apparent distress, alert, GCS 15, non-toxic Head: normocephalic, atraumatic Eyes: bilateral eye normal inspection, bilateral eye PERRL ENT: hearing grossly normal, normal voice Neck: full range of motion, no meningismus, other - bilateral anterior cervical LAD Respiratory: lungs clear, normal breath sounds, no wheezing, speaking full sentences Cardiovascular #1: regular rate, rhythm, no edema Gastrointestinal: normal bowel sounds, non tender, soft, non-distended, no guarding, other - spontaneously drained abdominal ST abscess approx 0.5cm in size with mild surrounding erythema, no visible discharge. No evidence of acute abdomen or sepsis. Pt. non-toxic in appearance and NAD. pt. Non-tender. Musculoskeletal: normal range of motion, gait/station normal, non-tender Neurologic: alert, motor strength/tone normal, oriented x3, sensory intact, responsive, speech normal Psychiatric: judgement/insight normal Skin: other - spontaneously drained abdominal ST abscess approx 0.5cm in size with mild surrounding erythema, no visible discharge. No evidence of acute abdomen or sepsis. Pt. non-toxic in appearance and NAD. pt. Non-tender. Lymphatic: adenopathy - Bilateral ant. cervical (Nikole Gordon) Medical Decision Making PA Attestation Dr. Stanton Is my supervising Physician whom patient management has been discussed with. (Nikole Gordon) Diagnostic Impression: Primary Impression: Abscess Additional Impression: Delayed wound healing ER Course 40-year-old female presents to the emergency department complaining of abscess on the lower abdomen which drained 4 days ago. Patient reports that she has had symptoms there x4 weeks that have not healed. Patient has past medical history of migraines and was recently seen and diagnosed with epiploic appendagitis. Patient denies fevers or chills she denies pain at this time she reports moderate amount of dark red blood came from the lesion. Patient does admit to some self manipulation to the area. She denies purulent discharge. She reports initially she had swelling and surrounding erythema. Patient reports she has been applying topical antibiotics and doing wound care at home herself. She is UTD with vaccinations. She denies itching. She denies lesions elsewhere on the body. She denies recent injections at or near the affected area. No other aggravating or relieving factors at this time. Pt. reports that the lesion began as a small red bump that she thought was an insect bite 4 weeks ago. Ddx considered but are not limited to cellulitis, abscess, cystic acne, necrotizing fasciitis, insect bite. Vital signs: are WNL, pt. is afebrile H&PE are most consistent with previously spontaneously drained abdominal ST abscess approx 0.5cm in size with mild surrounding erythema, no visible discharge. No evidence of acute abdomen or sepsis. Pt. non-toxic in appearance and NAD. pt. Non-tender. Pt. is non-toxic in appearance, NAD. ORDERS: -CBC wbc 13.2 otherwise WNL -BMP: unremarkable, pt. is a candidate for IV contrast -CT abdomen and Pelvis w. contrast.: unremarkable ED INTERVENTIONS: - Bacitracin and dressing is applied to open sore by RN. DISCHARGE: At this time pt. is stable for d/c to home. Will provide printed patient care instructions, and any necessary prescriptions. Care plan and follow up instructions have been discussed with the patient prior to discharge. Labs Test 06/11/20 14:51 06/11/20 15:29 Sodium Level 140 MMOL/L (136-145) Potassium Level 4.2 MMOL/L (3.5-5.1) Chloride Level 105 MMOL/L (98-107) Carbon Dioxide Level 23 MMOL/L (21-32) Anion Gap 12 mmol/L (5-15) Blood Urea Nitrogen 12 mg/dL (7-18) Creatinine 0.7 MG/DL (0.55-1.30) Estimat Glomerular Filtration Rate > 60 mL/min (>60) Glucose Level 82 MG/DL (74-106) Calcium Level 8.6 MG/DL (8.5-10.1) White Blood Count 13.2 K/UL (4.8-10.8) Red Blood Count 4.32 M/UL (4.20-5.40) Hemoglobin 12.0 G/DL (12.0-16.0) Hematocrit 35.5 % (37.0-47.0) Mean Corpuscular Volume 82 FL (80-99) Mean Corpuscular Hemoglobin 27.9 PG (27.0-31.0) Mean Corpuscular Hemoglobin Concent 33.9 G/DL (32.0-36.0) Red Cell Distribution Width 13.0 % (11.6-14.8) Platelet Count 348 K/UL (150-450) Mean Platelet Volume 6.5 FL (6.5-10.1) Neutrophils (%) (Auto) 67.8 % (45.0-75.0) Lymphocytes (%) (Auto) 24.4 % (20.0-45.0) Monocytes (%) (Auto) 5.1 % (1.0-10.0) Eosinophils (%) (Auto) 2.0 % (0.0-3.0) Basophils (%) (Auto) 0.7 % (0.0-2.0) (Nikole Gordon) ER Course Please see above note. Patient examined by me. Agree with assessment and treatment plan. (Ronnie Van MD) CT/MRI/US Diagnostic Results CT/MRI/US Diagnostic Results : Imaging Test Ordered: -CT abdomen and Pelvis w. contrast.: Impression "IMPRESSION: NO SIGN OF ACUTE DISEASE IN THE ABDOMEN AND PELVIS. SPECIFICALLY NO EVIDENCE OF ABDOMINAL WALL ABSCESS. DIVERTICULOSIS WITHOUT SIGN OF ACUTE DIVERTICULITIS. " --Per official radiology report- Please see report for specific details. (Nikole Gordon) Last Vital Signs Date Time Temp Pulse Resp B/P (MAP) Pulse Ox O2 Delivery O2 Flow Rate FiO2 06/11/20 13:50 97.7 84 17 117/72 98 Room Air (Nikole Gordon) Last Vital Signs Date Time Temp Pulse Resp B/P (MAP) Pulse Ox O2 Delivery O2 Flow Rate FiO2 06/11/20 17:24 97.7 87 18 118/72 98 Room Air (Ronnie Van MD) Disposition: HOME, SELF-CARE Condition: Stable Scripts Bacitracin (Bacitracin) 28.4 Gm Oint...g. 1 APPLIC TOPIC THREE TIMES A DAY, #28.3 GM Prov: Nikole Gordon 06/11/20 Trimethoprim/Sulfamethoxazole 160/800* (BACTRIM DS TABLET*) 1 Each Tablet 1 TAB ORAL TWICE A DAY for 7 Days, #14 TAB Prov: Nikole Gordon 06/11/20 Referrals: PARIS HERNANDEZ,REFERRING (PCP) Sonal Laughlin [facility]. [facility] Patient Instructions: Abscess Additional Instructions: Take medications as directed. Follow up with a Primary Care Provider in 3-5 days, even if your symptoms have resolved. --Please review list of primary care clinics, if you do not already have a prim [place] care provider Return sooner to ED if new symptoms occur, or current symptoms become worse. - Please note that this Emergency Department Report was dictated using [employer] intern technology software, occasionally this can lead to sorin eous entry secondary to interpretation by the dictation equipment. Nikole Gordon Jun 11, 2020 16:12 Ronnie Van MD Jun 12, 2020 21:42
--- NOTE | 2020-06-11 16:17 | Diagnostic Imaging Report ---
EXAM: CT CT Abdomen Pelvis w/Contrast INDICATION: Abdominal pain. Possible abdominal wall abscess. COMPARISON: 01/06/2020 TECHNIQUE: Axial images were obtained through the abdomen pelvis with intravenous contrast. Sagittal and coronal reformats are generated. All CT scans at this facility are performed using dose modulation techniques as appropriate to a performed exam including the following: automated exposure control with adjustment of the mA and/or kV according to patient size. RADIATION DOSE: CTDIvol: 20.2 mGy DLP: 1066.6 mGy-cm Dose information generated by the CT scanner is available in PACS. FINDINGS: The lung bases are clear. The liver and spleen are homogeneous. Gallbladder is without sludge or stone and there is no wall thickening. The pancreas is unremarkable. Adrenals are normal in morphology. The kidneys are normal in size, shape and axis. Small bowel loops are nondistended. There is scattered diverticulosis without sign of acute diverticulitis. The appendix is normal. There is no free fluid or free air. There are a few mildly prominent lymph nodes in the right lower quadrant mesentery. Urinary bladder appears unremarkable. Uterus is midline. No adnexal mass noted. Specifically there is no abdominal wall abscess demonstrated. IMPRESSION: NO SIGN OF ACUTE DISEASE IN THE ABDOMEN AND PELVIS. SPECIFICALLY NO EVIDENCE OF ABDOMINAL WALL ABSCESS. DIVERTICULOSIS WITHOUT SIGN OF ACUTE DIVERTICULITIS.
[2020-06-11 16:33] VITALS: BP 116/69
[2020-06-11] MEDS ORDERED: BACTRIM DS TAB1 EAC1 ORAL (17:01)
[2020-06-11] MEDS ORDERED: BACITRACIN15 GM TOPIC (17:01)
[2020-06-11] MEDS ORDERED: Bacitracin Oint UD TOPIC ONE (17:15)
[2020-06-11] MEDS ORDERED: Bactrim-DS 1 tab ORAL ONE (17:15)
--- NOTE | 2020-06-11 17:23 | NUR ---
ER DISCHARGE NOTE: Patient is cleared to be discharged per ERMD, pt is aox4, on room air, with stable vital signs. pt was given dc and prescription instructions, pt was able to verbalize understanding, pt id band and iv site removed without complications. pt is able to ambulate with steady gait. pt took all belongings. Pt educated regarding abscesses.
[2020-06-11 17:24] VITALS: BP 118/72
== END 2020-06-11 17:25 | disposition home or self-care (01) ==
LOC: EMR 14:14
DX: L02.211 Cutaneous abscess of abdominal wall (principal); S31.109A Unspecified open wound of abdominal wall, unspecified quadrant without penetration into peritoneal cavity, initial encounter; X58.XXXA Exposure to other specified factors, initial encounter; Y92.9 Unspecified place or not applicable; Z91.013 Allergy to seafood; K57.92 Diverticulitis of intestine, part unspecified, without perforation or abscess without bleeding
CPT/HCPCS: 36415; 74177; 80048; 85025; Q9965; Z7502; 99284